=== PATIENT | male | born 1985 | race Caucasian/White ===

== ENCOUNTER → 2017-05-27 | Outpatient (REF) | payer OTHER | LOC: M SFHCLERA 09:54 | DX: R50.9 Fever, unspecified (principal) ==

== ENCOUNTER → 2018-02-01 | Outpatient (CLI) | payer OTHER ==
[2018-02-01 17:29] LABS: BASO % 0.5 % (0.0-1.0); EOS # 0.2 10^3/uL (0.0-0.50); EOS % 2.9 % (0.0-3.0); HEMATOCRIT 44.9 % (42.0-52.0); HEMOGLOBIN 15.7 g/dl (13.5-17.5); IMMATURE GRANULOCYTE % 0.3 % (0-3.0); LYMPH # 2.4 10^3/uL (1.5-4.5); LYMPH % 31.9 % (24.0-44.0); MEAN CORPUSCULAR HEMOGLOBIN 30.8 pg (27.0-33.0); MEAN CORPUSCULAR VOLUME 88.2 fl (80.0-96.0); MONO # 0.4 10^3/uL (0.0-0.8); MONO % 5.5 % (0.0-5.0); NEUTROPHILS # 4.5 10^3/uL (1.8-7.7); NEUTROPHILS % 58.9 % (36.0-66.0); PLATELET COUNT, AUTOMATED 213 10^3/uL (150-450); RED BLOOD COUNT 5.09 10^6/uL (4.30-6.10); RED CELL DISTRIBUTION WIDTH 11.4 % (11.5-14.5); WHITE BLOOD COUNT 7.6 10^3/uL (4.0-10.0)
[2018-02-01 17:43] LABS: ALBUMIN 4.2 GM/DL (3.2-5.2); ALKALINE PHOSPHATASE 49 U/L (45-117); ALT/SGPT 49 U/L (12-78); ANION GAP 9 MEQ/L (8-16); AST/SGOT 27 U/L (7-37); BILIRUBIN,TOTAL 0.7 MG/DL (0.2-1.0); BLOOD UREA NITROGEN 19 MG/DL (7-18); CALCIUM LEVEL 8.9 MG/DL (8.5-10.1); CARBON DIOXIDE LEVEL 29 MEQ/L (21-32); CHLORIDE LEVEL 104 MEQ/L (98-107); CHOLESTEROL LEVEL 157 MG/DL (<200); CHOLESTEROL RISK RATIO 3.204 (<5); CREATININE FOR GFR 0.97 MG/DL (0.70-1.30); FREE T4 0.97 NG/DL (0.76-1.46); GLOMERULAR FILTRATION RATE > 60.0 (>60); GLUCOSE, FASTING 72 MG/DL (70-100); HDL CHOLESTEROL 49 MG/DL (>40); LDL CHOLESTEROL 85 MG/DL (<100); NON-HDL-C 108 MG/DL; POTASSIUM SERUM 3.9 MEQ/L (3.5-5.1); SODIUM LEVEL 142 MEQ/L (136-145); THYROID STIMULATING HORMONE 0.495 uIU/ML (0.358-3.740); TOTAL PROTEIN 7.2 GM/DL (6.4-8.2); TRIGLYCERIDES LEVEL 114 MG/DL (<150)
[2018-02-05 00:07] LABS: TESTOSTERONE FREE (DIRECT) 6.2 pg/mL (8.7-25.1)
== END ==
LOC: M SMT 14:05
DX: R53.83 Other fatigue (principal); Z13.220 Encounter for screening for lipoid disorders
CPT/HCPCS: 84403

== ENCOUNTER 2020-01-17 20:37 | Emergency (ER) | payer OTHER ==
[~2020-01-17] VITALS: Ht 172.7 cm; Wt 102.3 kg
[~2020-01-17 20:37] MED LIST: /HYDR10T OR; AMBI10TA OR; AMBIEN PO; FLEXERIL PO; LODINE PO; LUNE1TAB PO; PAXI40TA OR; PREV15CA OR; PROZ10CA OR; REME15TA OR; TRIL600T PO; VICO5TAB OR; XANA0.5T OR
[2020-01-17] MEDS ORDERED: GABA-843 PO (20:53)
[2020-01-17] MEDS ORDERED: FLUO20CA22 PO (20:53)
[2020-01-17] MEDS ORDERED: ZOLP10TA2 PO (20:53)
[2020-01-17] MEDS ORDERED: CYCL-707 PO (20:53)
[2020-01-17 21:33] LABS: HEMATOCRIT 47.1 % (42.0-52.0); HEMOGLOBIN 16.2 g/dl (13.5-17.5); MEAN CORPUSCULAR HEMOGLOBIN 30.4 pg (27.0-33.0); MEAN CORPUSCULAR HGB CONC 34.4 g/dl (32.0-36.5); MEAN CORPUSCULAR VOLUME 88.4 fl (80.0-96.0); PLATELET COUNT, AUTOMATED 215 10^3/uL (150-450); RED BLOOD COUNT 5.33 10^6/uL (4.30-6.10); WHITE BLOOD COUNT 8.3 10^3/uL (4.0-10.0)
[2020-01-17 21:55] LABS: AMPHETAMINES LEVEL URINE NEGATIVE (NEGATIVE); BARBITURATES URINE NEGATIVE (NEGATIVE); BENZODIAZEPINES URINE NEGATIVE (NEGATIVE); CANNABINOIDS URINE NEGATIVE (NEGATIVE); COCAINE METABOLITE URINE NEGATIVE (NEGATIVE); METHADONE URINE NEGATIVE (NEGATIVE); OPIATES URINE NEGATIVE (NEGATIVE); PHENCYCLIDINE URINE NEGATIVE (NEGATIVE)
[2020-01-17 22:08] LABS: ACETAMINOPHEN LEVEL < 2.0 UG/ML (10.0-30.0); ALBUMIN 4.3 GM/DL (3.2-5.2); ALT/SGPT 19 U/L (12-78); BILIRUBIN,DIRECT 0.2 MG/DL (0.0-0.2); BILIRUBIN,TOTAL 0.7 MG/DL (0.2-1.0); BLOOD UREA NITROGEN 16 MG/DL (7-18); CALCIUM LEVEL 8.9 MG/DL (8.5-10.1); CARBON DIOXIDE LEVEL 29 MEQ/L (21-32); CHLORIDE LEVEL 104 MEQ/L (98-107); CREATININE FOR GFR 1.02 MG/DL (0.70-1.30); ETHYL ALCOHOL (ETHANOL) < 0.003 % (0.000-0.010); GLOMERULAR FILTRATION RATE > 60.0 (>60); GLUCOSE, FASTING 93 MG/DL (70-100); POTASSIUM SERUM 3.4 MEQ/L (3.5-5.1); SALICYLATE LEVEL < 1.7 MG/DL (5.0-30.0); SODIUM LEVEL 138 MEQ/L (136-145); THYROID STIMULATING HORMONE 0.814 uIU/ML (0.358-3.740); TOTAL PROTEIN 7.1 GM/DL (6.4-8.2)
[2020-01-17] MEDS ORDERED: POTASSIUM CHLORIDE 10 MEQ SR TABLET PO ONE (23:00)
[2020-01-17] MEDS ORDERED: zolPIDEM TARTRATE 5 MG TAB PO ONE (23:45)
[2020-01-18 05:18] LABS: APPEARANCE, URINE CLEAR (CLEAR); BACTERIA, URINE AUTO NEGATIVE (NEGATIVE); BILIRUBIN, URINE AUTO NEGATIVE (NEGATIVE); BLOOD, URINE BLOOD NEGATIVE (NEGATIVE); COLOR, URINE YELLOW (YELLOW); GLUCOSE, URINE (UA) AUTO NEGATIVE (NEGATIVE); KETONE, URINE AUTO NEGATIVE (NEGATIVE); LEUKOCYTE ESTERASE, URINE AUTO NEGATIVE (NEGATIVE); MUCUS, URINE SMALL (NEGATIVE); NITRITE, URINE AUTO NEGATIVE (NEGATIVE); PROTEIN, URINE AUTO NEGATIVE (NEGATIVE); RBC, URINE AUTO 0 /HPF (0-3); SPECIFIC GRAVITY URINE AUTO 1.016 (1.002-1.035); SQUAMOUS EPITHELIAL CELL UR AU 0 /HPF (0-6); UROBILINOGEN, URINE AUTO 0.2 mg/dL (0.0-2.0); WBC, URINE AUTO 1 /HPF (0-3)
[2020-01-18] MEDS ORDERED: NICOTINE 21MG/24HR 1 EA TRANSDERMAL TD SCH (08:15)
[2020-01-18] MEDS ORDERED: GABAPENTIN 300 MG CAP PO SCH (09:00)
[2020-01-18] MEDS ORDERED: FLUoxetine 20 MG CAP PO SCH (09:00)
[2020-01-18] MEDS ORDERED: ALPRAZolam 0.5 MG TAB PO ONE (13:45)
[2020-01-18 13:52] VITALS: BP 156/89
--- NOTE | 2020-01-18 20:49 | ECGEPIP ---
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
== END 2020-01-18 14:00 | disposition short-term general hospital (02) ==
LOC: M ED 20:37
DX: F32.9 Major depressive disorder, single episode, unspecified (principal); R45.851 Suicidal ideations; F41.9 Anxiety disorder, unspecified; M51.9 Unspecified thoracic, thoracolumbar and lumbosacral intervertebral disc disorder; Z79.899 Other long term (current) drug therapy
CPT/HCPCS: 36415; 80048; 80076; 80307; 81001; 84443; 85027; 93005; 99285; G0480; U0002

== ENCOUNTER 2020-02-05 14:53 | Emergency (ER) | payer OTHER ==
[~2020-02-05] VITALS: Ht 172.7 cm; Wt 98.6 kg
[~2020-02-05 14:53] MED LIST changes: +CYCL-707 PO; +FLUO20CA22 PO; +GABA-843 PO; +ZOLP10TA2 PO
[2020-02-05] MEDS ORDERED: LORazepam 0.5 MG TAB PO ONE (16:00)
[2020-02-05 16:18] LABS: HEMATOCRIT 46.1 % (42.0-52.0); HEMOGLOBIN 16.2 g/dl (13.5-17.5); MEAN CORPUSCULAR HEMOGLOBIN 31.2 pg (27.0-33.0); MEAN CORPUSCULAR HGB CONC 35.1 g/dl (32.0-36.5); MEAN CORPUSCULAR VOLUME 88.8 fl (80.0-96.0); PLATELET COUNT, AUTOMATED 224 10^3/uL (150-450); RED BLOOD COUNT 5.19 10^6/uL (4.30-6.10); WHITE BLOOD COUNT 7.2 10^3/uL (4.0-10.0)
[2020-02-05 16:53] LABS: ACETAMINOPHEN LEVEL 3.1 UG/ML (10.0-30.0); ALBUMIN 4.1 GM/DL (3.2-5.2); ALT/SGPT 28 U/L (12-78); BILIRUBIN,DIRECT 0.2 MG/DL (0.0-0.2); BILIRUBIN,TOTAL 0.9 MG/DL (0.2-1.0); BLOOD UREA NITROGEN 7 MG/DL (7-18); CALCIUM LEVEL 9.5 MG/DL (8.5-10.1); CARBON DIOXIDE LEVEL 26 MEQ/L (21-32); CHLORIDE LEVEL 108 MEQ/L (98-107); CREATININE FOR GFR 0.87 MG/DL (0.70-1.30); ETHYL ALCOHOL (ETHANOL) < 0.003 % (0.000-0.010); GLOMERULAR FILTRATION RATE > 60.0 (>60); GLUCOSE, FASTING 89 MG/DL (70-100); POTASSIUM SERUM 3.5 MEQ/L (3.5-5.1); SALICYLATE LEVEL < 1.7 MG/DL (5.0-30.0); SODIUM LEVEL 141 MEQ/L (136-145); THYROID STIMULATING HORMONE 0.489 uIU/ML (0.358-3.740); TOTAL PROTEIN 6.8 GM/DL (6.4-8.2)
[2020-02-05 17:47] VITALS: BP 158/86
--- NOTE | 2020-02-06 10:01 | ECGEPIP ---
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
== END 2020-02-05 17:49 | disposition home or self-care (01) ==
LOC: M ED 14:53
DX: F41.1 Generalized anxiety disorder (principal); F32.9 Major depressive disorder, single episode, unspecified; M51.9 Unspecified thoracic, thoracolumbar and lumbosacral intervertebral disc disorder; Z79.899 Other long term (current) drug therapy
CPT/HCPCS: 36415; 80048; 80076; 84443; 85027; 93005; 99284; G0480

== ENCOUNTER → 2020-04-05 | Outpatient (CLI) | payer OTHER ==
--- NOTE | 2020-04-05 08:43 | REP ---
INDICATION: LBP. COMPARISON: Comparison lumbar spine radiographs are from July 25, 2014. No comparison MRI study.. TECHNIQUE: Sagittal and axial T1 and T2-weighted scans are acquired in the usual fashion with and without fat saturation. Sequences include spin echo, turbo spin-echo, and STIR imaging sequences. FINDINGS: Lumbar vertebral body heights are preserved. Alignment is normal. There is no evidence of spondylolysis or spondylolisthesis. No extra vertebral abnormality is appreciated. The tip of the conus medullaris is normal in position and appearance at L1. At the L1-2 disc level, there is degenerative narrowing and mild diffuse disc bulging. Anterior osteophyte formation is seen at L1-2. No disc protrusion or foraminal narrowing is seen. The L2-3 disc level is unremarkable. At L3-4, there is minimal degenerative disc narrowing. There is no evidence of disc protrusion, spinal stenosis, or foraminal narrowing. At the L4-5 level there is degenerative disc narrowing and desiccation. There is a large left posterior disc protrusion. This produces significant thecal sac compression. The disc protrusion measures 14 mm in right to left dimension by 8 mm in anteroposterior by 13 mm in craniocaudal span. There is diffuse bulging of the right foraminal portion of the disc as well. There is minimal facet hypertrophy and ligamentum flavum hypertrophy bilaterally at L4-5. At L5-S1 there is mild facet hypertrophy. Minimal central disc bulging is seen but no thecal sac compression is visible. IMPRESSION: Large left posterior focal disc protrusion at L4-5 with significant thecal sac compression. Ligamentum flavum and facet hypertrophy are present at L4-5 as well. <Electronically signed by Rodolfo Fair > 04/05/20 0811
== END ==
LOC: M RAD 07:38
PROVIDERS: ATTEND Physician Assistant
DX: M51.26 Other intervertebral disc displacement, lumbar region (principal)

== ENCOUNTER → 2020-04-14 | Outpatient (CLI) | payer OTHER ==
[~2020-04-14] MED LIST changes: +GABA-282 PO; -GABA-843 PO
== END ==
LOC: M LABSMTC 08:00
PROVIDERS: ATTEND Anesthesiology
DX: Z01.812 Encounter for preprocedural laboratory examination (principal); Z20.822 Contact with and (suspected) exposure to COVID-19

== ENCOUNTER 2020-04-15 10:35 | Day surgery (SDC) | payer OTHER ==
[~2020-04-15] VITALS: Ht 172.7 cm; Wt 99.8 kg
[~2020-04-15 10:35] MED LIST changes: +CelecoXIB (CeleBREX) 100 MG CAP PO ONE; +GABAPENTIN 300 MG CAP PO ONE; +LIDOCAINE 2% 100MG/5ML SDV (FOR ANES.) As Ordered ONE; +LR 1,000 ML IV SCH; +MIDAZOLAM INJ 2MG/2ML VIAL (J2250 PER 1MG) As Ordered ONE; +ONDANSETRON 4MG/2ML VIAL As Ordered ONE; +PERCOCET 5MG/325MG TAB PO ONE; +ROCURONIUM BROMIDE 50 MG/5 ML VIAL As Ordered ONE; +ceFAZolin SOD 2 GM in IV 1 EA IV ONE; +dexameTHASONE 4 MG/ML 1ML VIAL (J1100 PER 1MG) As Ordered ONE; +fentaNYL 100 MCG/2 ML INJECTION (J3010) As Ordered ONE; +propofoL 200 MG/20 ML VIAL As Ordered ONE
[2020-04-15] MEDS ORDERED: KETOROLAC 60MG 2ML VIAL As Ordered ONE (10:46)
[2020-04-15] MEDS ORDERED: SUGAMMADEX SODIUM 500 MG/5 ML VIAL (BRIDION) As Ordered ONE ×2 (10:49→14:26)
[2020-04-15] MEDS ORDERED: THROMBIN SOLN 20,000 UNITS KIT As Ordered ONE (10:56)
[2020-04-15] MEDS ORDERED: BUPIVACAINE/EPIN 0.25% 30 ML VIAL As Ordered ONE (10:56)
[2020-04-15] MEDS ORDERED: BUPIVACAINE HCL 0.25% 10ML VIAL As Ordered ONE (10:57)
[2020-04-15] MEDS ORDERED: TRANEXAMIC ACID 100 MG/ML 10ML VIAL As Ordered ONE (10:57)
[2020-04-15] MEDS ORDERED: EPINEPHrine INJ 1 MG/ML 1ML AMP As Ordered ONE (10:57)
[2020-04-15] MEDS ORDERED: BACITRACIN PWD 50,000 UNITS VIAL As Ordered ONE (10:58)
[2020-04-15] MEDS ORDERED: LIDOCAINE 2% 100MG/5ML SDV (FOR ANES.) As Ordered ONE (11:52)
[2020-04-15] MEDS ORDERED: LACRILUBE (AKWA TEARS) OPHTH OINT 3.5 GM As Ordered ONE (12:27)
[2020-04-15] MEDS ORDERED: ePHEDrine SULFATE 25 MG/5 ML(5MG/ML) SYRINGE As Ordered ONE ×2 (13:08→13:23)
[2020-04-15] MEDS ORDERED: fentaNYL 100 MCG/2 ML INJECTION (J3010) As Ordered ONE (13:16)
[2020-04-15] MEDS ORDERED: ROCURONIUM BROMIDE 50 MG/5 ML VIAL As Ordered ONE (13:27)
[2020-04-15] MEDS ORDERED: propofoL 200 MG/20 ML VIAL As Ordered ONE ×2 (13:54→14:34)
[2020-04-15] MEDS ORDERED: ACETAMINOPHEN 1000MG 100ML IV BTL (OFIRMEV) (J0131 PER 10MG) As Ordered ONE (14:17)
[2020-04-15] MEDS: BUPIVACAINE LIPOSOME/PF 1.3% 20ML VIAL (13.3MG/ML)(EXPAREL)(C9290 PER1MG) As Ordered ONE (14:28)
[2020-04-15] MEDS ORDERED: ACETAMINOPHEN TAB 650MG DOSE (2X325MG) PO PRN (15:00)
[2020-04-15] MEDS ORDERED: PROMETHAZINE INJ 25 MG/ML VIAL (J2550) IV PRN (15:00)
[2020-04-15] MEDS ORDERED: LR 1,000 ML IV SCH ×2 (15:00→15:30)
[2020-04-15] MEDS ORDERED: PERCOCET 5MG/325MG TAB PO PRN ×2 (15:15)
[2020-04-15] MEDS ORDERED: HYDROMORPHONE HCL 0.5 MG/ 0.5 ML SYRINGE (J1170 PER 1) IV PRN (15:15)
[2020-04-15] MEDS: PERCOCET 5MG/325MG TAB PO PRN ×2 (15:15→16:24)
[2020-04-15] MEDS: HYDROMORPHONE HCL 0.5 MG/ 0.5 ML SYRINGE (J1170 PER 1) IV PRN ×2 (15:20→15:30)
[2020-04-15] MEDS ORDERED: fentaNYL 100 MCG/2 ML INJECTION (J3010) IV PRN (15:30)
[2020-04-15] MEDS ORDERED: ONDANSETRON 4MG/2ML VIAL IV PRN (15:30)
[2020-04-15] MEDS ORDERED: diphenhydrAMINE 50MG/ML VIAL (J1200) IV PRN (15:30)
--- NOTE | 2020-04-15 15:51 | REP ---
INDICATION: LEFT L4/L5 MICRODISECTOMY COMPARISON: None. TECHNIQUE: Portable intraoperative lateral view of the lumbosacral spine FINDINGS: Probes via posterior approach at the L4-5 level. IMPRESSION: Probe at the L4-5 level. <Electronically signed by Garrett Bates > 04/15/20 1541
[2020-04-15] MEDS ORDERED: ceFAZolin SOD 2 GM in IV 1 EA IV ONE (17:00)
[2020-04-15 17:30] VITALS: BP 125/71
--- NOTE | 2020-04-15 20:47 | RO ---
OPERATIVE NOTE DATE OF OPERATION: 04/15/2020 PREOPERATIVE DIAGNOSIS: Left lower extremity radiculopathy secondary to large disc herniation at L4-5. POSTOPERATIVE DIAGNOSIS: Left lower extremity radiculopathy secondary to large disc herniation at L4-5. PROCEDURE: Left L4-5 microdiscectomy, removal disc material. SURGEON: Chirag Latif M.D. NETWORKER: Faheem Parker PA-C ANESTHESIA: General. ESTIMATED BLOOD LOSS: Less than 35 mL, replaced with crystalloid COMPLICATIONS: No complications. INDICATION: Intractable discomfort radiating down the left lower extremity. The patient reported symptoms for about three months that were not really getting any better despite use of anti-inflammatories and gabapentin. He has elected for operative intervention. Consent reviewed in detail including a shayan discussion of the pathology involved, the procedure proposed, alternatives including doing nothing, risks including but not limited to pain, failure, infection, bleeding, blood loss, incomplete relief of symptoms, nerve injury, need for more surgery and other issue. The patient agrees to proceed. DESCRIPTION OF PROCEDURE: The patient was identified in the holding area. Side and site verified. He was brought to the operating room. Once anesthesia was administered, he was positioned in the prone position on the Harlan frame for exposure of the lumbar spine, the knees slightly flexed. Once I and the sharemilker were comfortable with the patient's positioning, he was then sterilely prepped and draped in the usual fashion. Timeout was accomplished. The first part of the procedure, I utilized 3.5 loupe magnification as well as a headlight. I stood on the patient's left and Mr. Parker stood on the patient's right. I outlined the incision with a Marcaine, infiltrated with 1/4% Marcaine with epinephrine and made an incision using a 10 blade knife, developed down through skin and subcuticular tissues to the posterior lumbar fascia. I palpated the spinous process of L5, reflected the posterior lumbar fascia off of the spinous process of 4 and 5, dissected down the L4 lamina, drilled a divot in the L4 lamina, placed a Hayes-Cem probe, got a cross-table lateral, verified level. Once we placed retractors, we then exchanged loupe magnification for the operating microscope. Mr. Parker looked through oculars on the patient's right. I looked through oculars on the left. This facilitated safety using the high-speed bur. I utilized the high-speed bur to implement a left unilateral laminotomy of the L4 level extending superiorly to the bare area of 4, inferiorly superior lamina of S1. Mr. Parker utilized the suction José Miguel retractor and the suction apparatus to assist in exposure. I elevated the ligamentum flavum using curved curettes and removed it using Kerrisons. This exposed the thecal sac. I used a Hayes-Magen probe to sweep the thecal sac medially. This allowed me to expose the subligamentous disc extrusion which was able to be probed free and removed using Coulter pituitaries in piecemeal fashion. I then also utilized the Coulter pituitaries, exploring the interspace and I used the Hayes-[place] probe to probe for additional friable and free disc material which was removed with the Coulter pituitaries. The neural foramen was palpated with the Hayes-[place] and found to be patent. Irrigation was accomplished. Thrombin Gelfoam was utilized for hemostasis and removed. Next, retractors were removed. The posterior lumbar fascia was reapproximated with interrupted stitch, the deep dermis with interrupted stitch. Prineo dressing applied. The patient was moved to the recovery room in good condition, voiced improvement in symptoms in the recovery room. Keith was present and participated in the entirety of rhe case.
[2020-04-16] MEDS ORDERED: METAMUCIL (PSYLLIUM) PACKET PO SCH (09:00)
== END 2020-04-15 17:36 | disposition home or self-care (01) ==
LOC: M SDC 10:35
PROVIDERS: ATTEND Orthopaedic Surgery
DX: M51.26 Other intervertebral disc displacement, lumbar region (principal); G40.909 Epilepsy, unspecified, not intractable, without status epilepticus; Z87.891 Personal history of nicotine dependence; F41.9 Anxiety disorder, unspecified; F32.9 Major depressive disorder, single episode, unspecified; Z79.899 Other long term (current) drug therapy
CPT/HCPCS: 36415; 63030; 72100; 86850; 86900; 86901; 88304; C9290; J0131; J0690; J1100; J1885; J2250; J2405; J3010; U0002

== ENCOUNTER → 2021-03-14 | Outpatient (REF) ==
[~2021-03-14] MED LIST changes: -CelecoXIB (CeleBREX) 100 MG CAP PO ONE; -GABAPENTIN 300 MG CAP PO ONE; -LIDOCAINE 2% 100MG/5ML SDV (FOR ANES.) As Ordered ONE; -LR 1,000 ML IV SCH; -MIDAZOLAM INJ 2MG/2ML VIAL (J2250 PER 1MG) As Ordered ONE; -ONDANSETRON 4MG/2ML VIAL As Ordered ONE; -PERCOCET 5MG/325MG TAB PO ONE; -ROCURONIUM BROMIDE 50 MG/5 ML VIAL As Ordered ONE; -ceFAZolin SOD 2 GM in IV 1 EA IV ONE; -dexameTHASONE 4 MG/ML 1ML VIAL (J1100 PER 1MG) As Ordered ONE; -fentaNYL 100 MCG/2 ML INJECTION (J3010) As Ordered ONE; -propofoL 200 MG/20 ML VIAL As Ordered ONE
[2021-03-14 12:23] LABS: RSV AMPLIFICATION NEGATIVE (NEGATIVE)
== END ==
LOC: M EMP 10:36
PROVIDERS: ATTEND Family Medicine
DX: Z11.52 Encounter for screening for COVID-19 (principal)

== ENCOUNTER → 2021-09-12 | Outpatient (CLI) | payer OTHER, SELFPAY ==
[2021-09-12 17:23] LABS: BASO % 0.7 % (0.0-1.0); EOS # 0.2 10^3/uL (0.0-0.5); EOS % 3.4 % (0.0-3.0); HEMATOCRIT 44.6 % (42.0-52.0); HEMOGLOBIN 15.3 g/dl (13.5-17.5); LYMPH # 1.6 10^3/uL (1.5-5.0); LYMPH % 27.5 % (24.0-44.0); MEAN CORPUSCULAR HEMOGLOBIN 31.3 pg (27.0-33.0); MEAN CORPUSCULAR HGB CONC 34.3 g/dl (32.0-36.5); MEAN CORPUSCULAR VOLUME 91.2 fl (80.0-96.0); MONO # 0.4 10^3/uL (0.0-0.8); NEUTROPHILS # 3.6 10^3/uL (1.5-8.5); NEUTROPHILS % 62.2 % (36.0-66.0); PLATELET COUNT, AUTOMATED 226 10^3/uL (150-450); RED BLOOD COUNT 4.89 10^6/uL (4.30-6.10); WHITE BLOOD COUNT 5.8 10^3/uL (4.0-10.0)
[2021-09-12 17:40] LABS: ALBUMIN 4.1 GM/DL (3.2-5.2); ALT/SGPT 25 U/L (12-78); BILIRUBIN,TOTAL 0.7 MG/DL (0.2-1.0); BLOOD UREA NITROGEN 6 MG/DL (7-18); CALCIUM LEVEL 9.3 MG/DL (8.5-10.1); CARBON DIOXIDE LEVEL 30 MEQ/L (21-32); CHLORIDE LEVEL 107 MEQ/L (98-107); CHOLESTEROL LEVEL 165 MG/DL (<200); CHOLESTEROL RISK RATIO 3.367 (<5); CREATININE FOR GFR 0.89 MG/DL (0.70-1.30); FREE T4 0.92 NG/DL (0.76-1.46); GLOMERULAR FILTRATION RATE > 60.0 (>60); GLUCOSE, FASTING 83 MG/DL (70-100); HDL CHOLESTEROL 49 MG/DL (>40); LDL CHOLESTEROL 101 MG/DL (<100); NON-HDL-C 116 MG/DL; POTASSIUM SERUM 4.3 MEQ/L (3.5-5.1); SODIUM LEVEL 143 MEQ/L (136-145); THYROID STIMULATING HORMONE 0.277 uIU/ML (0.358-3.740); TOTAL PROTEIN 6.7 GM/DL (6.4-8.2); TRIGLYCERIDES LEVEL 77 MG/DL (<150)
[2021-09-12 17:42] LABS: TOTAL 25(OH) VITAMIN D 23.3 NG/ML (30.0-100.0)
== END ==
LOC: M PLALAB 14:37
PROVIDERS: ATTEND Family Medicine
DX: E55.9 Vitamin D deficiency, unspecified (principal); Z13.0 Encounter for screening for diseases of the blood and blood-forming organs and certain disorders involving the immune mechanism; Z13.220 Encounter for screening for lipoid disorders; Z13.29 Encounter for screening for other suspected endocrine disorder

== ENCOUNTER 2022-08-10 10:53 | Day surgery (SDC) | payer OTHER ==
[~2022-08-10] VITALS: Ht 172.7 cm; Wt 83.0 kg
[~2022-08-10 10:53] MED LIST changes: +NS 1,000 ML IV ONE
[2022-08-10] MEDS ORDERED: propofoL 200 MG/20 ML VIAL As Ordered ONE ×3 (12:07→12:43)
[2022-08-10 12:45] VITALS: BP 105/57
== END 2022-08-10 12:52 | disposition home or self-care (01) ==
LOC: M OPP 10:53
PROVIDERS: ATTEND Surgery
DX: K64.2 Third degree hemorrhoids (principal); K64.4 Residual hemorrhoidal skin tags; K62.5 Hemorrhage of anus and rectum; Z79.899 Other long term (current) drug therapy; Z88.5 Allergy status to narcotic agent

== ENCOUNTER 2023-05-13 10:06 | Emergency (ER) | payer OTHER ==
[~2023-05-13 10:06] MED LIST changes: -NS 1,000 ML IV ONE
[2023-05-13] MEDS ORDERED: BUPR150T12 (10:22)
[2023-05-13] MEDS ORDERED: GABA-282 (10:22)
[2023-05-13] MEDS ORDERED: AMPH1CAP14 (10:22)
[2023-05-13] MEDS ORDERED: DEXTROAMP-AMPHETAMIN (10:22)
[2023-05-13] MEDS: CYCLOBENZAPRINE 10MG TABLET PO ONE (12:35)
[2023-05-13] MEDS: LIDOCAINE 5% (LIDODERM) PATCH TD ONE (12:36)
[2023-05-13] MEDS ORDERED: CYCL-707 PO (13:42)
[2023-05-13] MEDS ORDERED: KETO10TAB PO (13:42)
[2023-05-13] MEDS ORDERED: LIDO5DIS41 TOP (13:42)
[2023-05-13 14:07] VITALS: BP 123/69; TEMP 97.3; O2SAT 99
== END 2023-05-13 14:09 | disposition home or self-care (01) ==
LOC: EDBD 10:06 → M ED 10:06
DX: S39.012A Strain of muscle, fascia and tendon of lower back, initial encounter (principal); N39.9 Disorder of urinary system, unspecified; X58.XXXA Exposure to other specified factors, initial encounter; Y92.018 Other place in single-family (private) house as the place of occurrence of the external cause; Y93.89 Activity, other specified; Y99.8 Other external cause status; Z88.5 Allergy status to narcotic agent; Z98.890 Other specified postprocedural states

== ENCOUNTER → 2024-02-01 | Outpatient (CLI) | payer OTHER ==
[~2024-02-01] MED LIST changes: +AMPH1CAP14; +BUPR150T12; +DEXTROAMP-AMPHETAMIN; +FLUO-365 PO; -FLUO20CA22 PO; +GABA-1172; +GABA-1172 PO; -GABA-282 PO; +KETO10TAB PO; +LIDO5DIS41 TOP
== END ==
LOC: M PLAIMG 11:03
PROVIDERS: ATTEND Family Medicine
DX: M54.12 Radiculopathy, cervical region (principal)

== ENCOUNTER → 2024-05-12 | Outpatient (CLI) | payer OTHER | LOC: M RAD 16:30 | PROVIDERS: ATTEND Family Medicine | DX: M54.12 Radiculopathy, cervical region (principal) ==

== ENCOUNTER → 2024-05-12 | Outpatient (CLI) | payer OTHER | LOC: M RAD 16:27 | PROVIDERS: ATTEND Nurse Practitioner Adult Health | DX: M54.16 Radiculopathy, lumbar region (principal) ==